=== PATIENT | female | born 1975 | race American Indian/Alaskan Native ===

== ENCOUNTER 2023-05-25 19:29 | Emergency (ER) | payer SELFPAY ==
[~2023-05-25] VITALS: Ht 165.1 cm; Wt 104.5 kg
[~2023-05-25 19:29] MED LIST: GLUCOPHAGE1000 MG PO; TRULICITY1.5 MG/0.5 SQ
[2023-05-25 19:35] VITALS: TEMP 97.9
[2023-05-25] MEDS ORDERED: Insulin Lispro (HumaLOG) IV ONE (20:00)
[2023-05-25] MEDS ORDERED: Insulin Lispro (HumaLOG) SQ ONE (20:00)
[2023-05-25] MEDS ORDERED: NS 1,000 ML IV ONE (20:00)
[2023-05-25 20:18] LABS: BASO % 0.4 % (0.0-2.0); EOS # 0.1 K/mm3 (0.0-0.7); EOS % 0.6 % (0.0-4.0); GRAN # 5.6 K/mm3 (1.4-6.5); GRAN % 69.9 % (42.2-75.2); HEMATOCRIT 40.9 % (37.0-47.0); HEMOGLOBIN 13.4 g/dl (12.5-16.0); LYMPH % 24.4 % (20.0-51.0); MEAN CELL VOLUME 89 fl (80.0-100.0); MEAN CORPUSCULAR HEMOGLOBIN 29 pg (27-31); MEAN CORPUSCULAR HGB CONC 33 g/dl (33.0-37.0); MEAN PLATELET VOLUME 11.4 fl (7.4-10.4); MONO # 0.4 K/mm3 (0.1-0.6); MONO % 4.5 % (1.7-9.3); PLATELET COUNT 280 K/mm3 (130-400); RED BLOOD COUNT 4.62 M/mm3 (4.10-5.30); REDCELL DISTRIBUTION WIDTH-CV 11.9 % (11.5-14.5)
[2023-05-25 20:25] LABS: PARTIAL THROMBOPLASTIN TIME 29.1 SECONDS (26.0-37.0); PROTHROMBIN TIME 10.9 SECONDS (9.7-12.8)
[2023-05-25] MEDS ORDERED: Ketorolac 30 MG/ML VIAL IV ONE (20:30)
[2023-05-25] MEDS ORDERED: Magnesium Sulfate 4% 50 ML IV ONE (20:30)
[2023-05-25] MEDS ORDERED: diphenhydrAMINE 50 MG/ML 1 ML VIAL IV ONE (20:30)
[2023-05-25 20:34] LABS: CALCIUM 9.5 mg/dL (8.4-10.2); CREATININE, serum 0.89 mg/dL (0.57-1.11); POTASSIUM 4.1 mmol/L (3.5-4.5)
[2023-05-25 21:57] VITALS: BP 112/69; PULSE 94
== END 2023-05-25 21:57 | disposition home or self-care (01) ==
LOC: COL.ER 19:29
PROVIDERS: Internal Medicine
DX: G43.119 Migraine with aura, intractable, without status migrainosus (principal); E11.65 Type 2 diabetes mellitus with hyperglycemia
CPT/HCPCS: J1200; J1815; J1885; J2765; J3475; J7030